=== PATIENT | male | born 1985 | race Caucasian/White ===

== ENCOUNTER 2024-01-06 18:47 | Emergency (ER) | payer OTHER | END 2024-01-06 19:17 | disposition home or self-care (01) | LOC: VM.ED 18:47 | DX: S00.531A Contusion of lip, initial encounter (principal); S60.512A Abrasion of left hand, initial encounter; Y04.8XXA Assault by other bodily force, initial encounter | CPT/HCPCS: 99283 ==

== ENCOUNTER 2024-06-19 20:06 | Emergency (ER) | payer OTHER ==
[2024-06-19] MEDS: Diphtheria,Pertussis(Acell),Tetanus Vaccine 0.5 ML Syringe IM ONE (20:40)
== END 2024-06-19 20:21 | disposition home or self-care (01) ==
LOC: VM.ED 20:06
DX: S61.042A Puncture wound with foreign body of left thumb without damage to nail, initial encounter (principal); Z23 Encounter for immunization; W45.8XXA Other foreign body or object entering through skin, initial encounter
CPT/HCPCS: 90471; 90715; 99283; 99283-25